=== PATIENT | female | born 1955 | race Caucasian/White ===

== ENCOUNTER 2023-03-14 00:54 | Emergency (ER) | payer SELFPAY ==
[~2023-03-14] VITALS: Ht 154.9 cm; Wt 40.8 kg
[2023-03-14] MEDS ORDERED: ONDANSETRON HCL 4 MG ORAL DISINTEGRATING TAB PO STA (01:04)
[2023-03-14] MEDS ORDERED: KETOROLAC TROMETHAMINE 60 MG/2 ML VIAL ONE (01:09)
[2023-03-14] MEDS ORDERED: ONDANSETRON HCL 4 MG ORAL DISINTEGRATING TAB ONE (01:10)
[2023-03-14] MEDS ORDERED: KETOROLAC TROMETHAMINE 60 MG/2 ML VIAL IM ONE (01:15)
[2023-03-14 01:26] LABS: CLARITY,URINE CLEAR (CLEAR); COLOR,URINE YELLOW (YELLOW); KETONES,URINE TRACE (NEGATIVE); LEUKOCYTE ESTERASE ,URINE NEGATIVE (NEGATIVE); NITRITE,URINE NEGATIVE (NEGATIVE); PROTEIN,URINE DIPSTICK NEGATIVE (NEGATIVE); URINE UROBILINOGEN 0.2 mg/dL (0.2 - 1)
[2023-03-14 01:33] LABS: BACTERIA,URINE FEW /HPF; EPITHELIAL CELLS,URINE FEW /LPF; WBC,URINE (MAN) 0-5 /HPF (0-5)
[2023-03-14] MEDS ORDERED: Morphine 4mg INJECTION 4 MG/ML INJ IM STA (01:57)
[2023-03-14] MEDS ORDERED: Morphine 4mg INJECTION 4 MG/ML INJ IV STA (02:28)
[2023-03-14] MEDS ORDERED: Morphine 4mg INJECTION 4 MG/ML INJ ONE (02:31)
[2023-03-14 02:47] LABS: BASOPHILS # (AUTO) 0.1 (0.0-0.1); BASOPHILS % 0.8 % (0.0-1.0); EOSINOPHILS # (AUTO) 0.4 (0.0-0.4); EOSINOPHILS % 3.9 % (0.0-6.0); HEMATOCRIT 38.7 % (34.2-44.1); HEMOGLOBIN 12.9 g/dL (12.0-16.0); LYMPHOCYTES # (AUTO) 2.5 (1.0-3.2); LYMPHOCYTES % 28.1 % (18.0-39.1); MEAN CORPUSCULAR HEMOGLOBIN 30.6 pg (28-32); MEAN CORPUSCULAR HGB CONC 33.3 g/dL (31-35); MEAN CORPUSCULAR VOLUME 91.9 fL (81-99); MONOCYTES # (AUTO) 0.9 (0.2-0.8); MONOCYTES % 10.1 % (4.4-11.3); NEUTROPHILS # (AUTO) 5.1 (2.1-6.9); NEUTROPHILS % 56.8 % (38.7-80.0); PLATELET COUNT 290 x10e3/uL (140-360); RED BLOOD COUNT 4.21 x10e6/uL (3.6-5.1); RED CELL DISTRIBUTION WIDTH 14.9 % (11.7-14.4)
[2023-03-14 03:09] LABS: ALBUMIN 3.1 g/dL (3.5-5.0); ALBUMIN/GLOBULIN RATIO 1.1 (0.8-2.0); ANION GAP 14.2 mmol/L (8-16); CALCIUM 8.4 mg/dL (8.4-10.2); CREATININE, SERUM 0.66 mg/dL (0.57-1.11); POTASSIUM 3.2 mmol/L (3.5-5.1)
[2023-03-14] MEDS ORDERED: HYDROCODON-ACE1 EA11 PO (03:17)
[2023-03-14] MEDS ORDERED: ONDANSETRON ODT4 MG PO (03:17)
[2023-03-14 03:28] VITALS: BP 152/75; O2SAT 100
== END 2023-03-14 03:29 | disposition home or self-care (01) ==
LOC: ER 01:00
DX: M48.56XA Collapsed vertebra, not elsewhere classified, lumbar region, initial encounter for fracture (principal); Z88.8 Allergy status to other drugs, medicaments and biological substances
CPT/HCPCS: 36415; 74176; 80053; 81001; 83690; 85025; 99284; J1885; J2270; Q0162

== ENCOUNTER 2024-04-08 20:08 | Emergency (ER) | payer MEDICARE ==
[~2024-04-08] VITALS: Ht 154.9 cm; Wt 34.5 kg
[~2024-04-08 20:08] MED LIST: HYDROCODON-ACE1 EA11 PO; ONDANSETRON ODT4 MG PO
[2024-04-08 21:17] VITALS: PULSE 83; RESP 17; TEMP 98.5
[2024-04-09] MEDS ORDERED: IBUPROFEN200 MG PO (00:04)
[2024-04-09] MEDS ORDERED: ONDANSETRON ODT4 MG PO (00:04)
[2024-04-09] MEDS ORDERED: HYDROCODON-ACE1 EA12 PO (00:04)
[2024-04-09] MEDS ORDERED: IBUPROFEN 600 MG TAB ONE (00:06)
[2024-04-09] MEDS ORDERED: DEXAMETHASONE SOD PHOS 10 MG/1 ML VIAL ONE (00:06)
[2024-04-09] MEDS ORDERED: HYDROCODONE/APAP 5MG-325MG TAB ONE (00:07)
[2024-04-09] MEDS: IBUPROFEN 600 MG TAB PO STA (00:08)
[2024-04-09] MEDS: HYDROCODONE/APAP 5MG-325MG TAB PO ONE ×2 (00:08→00:09)
[2024-04-09] MEDS: DEXAMETHASONE SOD PHOS 10 MG/1 ML VIAL IM ONE ×2 (00:08→00:09)
[2024-04-09] MEDS: IBUPROFEN 400 MG TAB PO ONE (00:09)
[2024-04-09 00:15] VITALS: BP 137/86; PULSE 76; RESP 19; TEMP 98.2; O2SAT 99
== END 2024-04-09 01:00 | disposition home or self-care (01) ==
LOC: ER 20:12
DX: S22.080A Wedge compression fracture of T11-T12 vertebra, initial encounter for closed fracture (principal); S32.030A Wedge compression fracture of third lumbar vertebra, initial encounter for closed fracture; X50.1XXA Overexertion from prolonged static or awkward postures, initial encounter; Y92.89 Other specified places as the place of occurrence of the external cause; I10 Essential (primary) hypertension; E03.9 Hypothyroidism, unspecified; G40.909 Epilepsy, unspecified, not intractable, without status epilepticus; F17.210 Nicotine dependence, cigarettes, uncomplicated
CPT/HCPCS: 72100; 99283; J1100